=== PATIENT | male | born 1950 | race Caucasian/White ===

== ENCOUNTER 2017-12-21 15:58 | Emergency (ER) | payer MEDICARE ==
[~2017-12-21] VITALS: Ht 165.1 cm; Wt 75.0 kg
[~2017-12-21 15:58] MED LIST: MOBI15TA PO; RANI150UDC PO
[2017-12-21 16:07] VITALS: BP 115/58; PULSE 110; RESP 18; TEMP 99.1; O2SAT 97
[2017-12-21] MEDS ORDERED: BENZ100 PO (16:50)
--- NOTE | 2017-12-21 16:50 | PD ---
HPI Chief Complaint: Cold / Flu Symptoms Time Seen by Provider: 16:37 Travel History International Travel<30 days: No Contact w/Intl Traveler<30days: No Traveled to known affect area: No History of Present Illness HPI 67-year-old male presents to the emergency department with complaint of chest congestion, nasal congestion, cough, body aches, headache, subjective fever, diarrhea since yesterday. Denies chest pain, shortness of breath, abdominal pain, vomiting. Denies wheezing. Has not taken any medications or tried any treatments to alleviate his symptoms. No known aggravating or relieving factors. Symptoms are [id number] in severity. His is sick with similar symptoms. Dr. Rodríguez is primary care provider. No known allergies. Denies significant past medical history. Has no other medical complaints. No other modifying factors or associated signs and symptoms. PFSH Past Medical History Arthritis: Yes Diminished Hearing: No Musculoskeletal: Yes (DJD) Past Surgical History Cholecystectomy: Yes Social History Alcohol Use: No Tobacco Use: Yes (2 PPD) Substance Use: No Allergies-Medications (Allergen,Severity, Reaction): Coded Allergies: No Known Allergies (Verified Adverse Reaction, Unknown, 12/21/17) Reported Meds & Prescriptions Reported Meds & Active Scripts Active Ibuprofen 800 Mg Tab 800 Mg PO Q8H PRN Tessalon Perles (Benzonatate) 100 Mg Cap 100 Mg PO TID PRN Mobic (Meloxicam) 15 Mg Tab 15 Mg PO DAILY Reported Zantac (Ranitidine HCl) 150 Mg/10 Ml Syrp 0 Mg PO UNKNOWN DOSE Review of Systems Except as stated in HPI: all other systems reviewed are Neg Physical Exam Narrative GENERAL: Well-nourished, well-developed male patient, in no acute distress; low-grade fever 99.2, nontoxic-appearing SKIN: Warm and dry. No rash. HEAD: Atraumatic. Normocephalic. EYES: Pupils equal and round. No scleral icterus. No injection or drainage. ENT: Mucosa pink and moist. No erythema or exudates. No uvular edema. No uvular , palatal, or tonsillar deviation. Airway patent. EARS: Bilateral pinnae and external canals appear within normal limits. Bilateral tympanic membranes without erythema, dullness or perforation. NECK: Trachea midline. No lymphadenopathy. CARDIOVASCULAR: Regular rate and rhythm. No murmur appreciated. RESPIRATORY: No accessory muscle use. Clear to auscultation. Breath sounds equal bilaterally. No retractions or tachypnea. GASTROINTESTINAL: Abdomen soft, non-tender, nondistended. Hepatic and splenic margins not palpable. Bowel sounds are active 4 quadrants. MUSCULOSKELETAL: No obvious deformities. No clubbing. No cyanosis. No edema. NEUROLOGICAL: Awake and alert. Oriented 3. No obvious cranial nerve deficits. Motor grossly within normal limits. Normal speech. Moves all extremities. 5/5 strength to all extremities. PSYCHIATRIC: Appropriate mood and affect; insight and judgment normal. Data Data Last Documented VS Vital Signs Date Time Temp Pulse Resp B/P (MAP) Pulse Ox O2 Delivery O2 Flow Rate FiO2 12/21/17 16:07 99.1 110 18 115/58 (77) 97 Room Air Orders Orders Influenzae A/B Antigen (12/21/17 16:46) Ibuprofen (Motrin) (12/21/17 17:00) Ed Discharge Order (12/21/17 17:24) MDM Medical Decision Making Medical Screen Exam Complete: Yes Emergency Medical Condition: Yes Medical Record Reviewed: Yes Differential Diagnosis Influenza, viral illness, upper respiratory infection, bronchitis Narrative Course 67-year-old male with cold/flu symptoms. Low-grade fever of 99.4 in the ER. Nontoxic-appearing. Physical exam is unremarkable. Lungs are clear and equal throughout. Heart rate recheck on physical exam is approximately 90 bpm. He denies chest pain or shortness of breath, wheezing. Influenza, ibuprofen ordered. 1724: lnfluenza negative. Discussed viral illness and symptomatic management. Tessalon Perles and ibuprofen prescribed for home. Instructed patient to follow up with primary care provider. Patient verbalizes understanding and agreement with treatment plan. Patient is medically cleared and stable for discharge. Discussed reasons to return to the emergency department. Patient agrees with treatment plan. The patients vital signs are stable and the patient is stable for outpatient follow-up and treatment. Patient discharged home, stable and in no acute distress. Diagnosis Primary Impression: Viral illness Referrals: Primary Care Physician Patient Instructions: Cold Symptoms (ED), General Instructions, Influenza (ED) , Safe Use of Cough and Cold Medicines (ED), Viral Syndrome (ED) Additional Instructions: Ibuprofen or Tylenol as directed and as needed to reduce fever; may alternate ibuprofen and Tylenol as needed every 3 hours to minimize fever [id number] cold/flu medications as directed and as needed for symptom management Get plenty of sleep/rest Drink plenty of fluids to prevent dehydration; such as Gatorade, Powerade, Pedialyte [place] diet to encourage nutrition such as crackers, fruit, applesauce, toast, soup etc. Use an air humidifier/turn off ceiling fans Follow-up with your primary care provider within 1 day Return immediately to the emergency department with worsening of symptoms Med/Other Pt SpecificInfo: Prescription(s) given Scripts Ibuprofen (Ibuprofen) 800 Mg Tab 800 MG PO Q8H Y for PAIN SCALE 1 TO 10, #20 TAB 0 Refills Prov: Jessi Valenzuela 12/21/17 Benzonatate (Tessalon Perles) 100 Mg Cap 100 MG PO TID Y for COUGH, #10 CAP 0 Refills Prov: Jessi Valenzuela 12/21/17 Disposition: 01 DISCHARGE HOME Condition: Stable Jessi Valenzuela Dec 21, 2017 16:50
[2017-12-21] MEDS ORDERED: IBUPROFEN 800 MG TAB PO ONE (17:00)
[2017-12-21] MEDS ORDERED: IBUP1TAB7 PO (17:24)
== END 2017-12-21 17:45 | disposition home or self-care (01) ==
LOC: PHEFT 15:58
DX: B34.9 Viral infection, unspecified (principal); F17.200 Nicotine dependence, unspecified, uncomplicated
CPT/HCPCS: 87804; 99283

== ENCOUNTER 2018-01-07 18:35 | Inpatient (IN) | payer MEDICARE ==
[~2018-01-07] VITALS: Ht 165.1 cm; Wt 72.7 kg
[~2018-01-07 18:35] MED LIST changes: +BENZ100 PO; +IBUP1TAB7 PO
[2018-01-07 18:54] VITALS: BP 117/65; PULSE 86; RESP 18; TEMP 98.7; O2SAT 95
--- NOTE | 2018-01-07 20:08 | RADRPT ---
EXAM DATE/TIME: 01/07/2018 19:16 [place] COMPARISON: No previous studies available for comparison. INDICATIONS : Cough. MEDICAL HISTORY : None. SURGICAL HISTORY : None. ENCOUNTER: Initial ACUITY: 3 weeks PAIN SCORE: 0/10 LOCATION: Bilateral chest FINDINGS: PA and lateral views of the chest demonstrate the lungs to be symmetrically aerated without evidence of mass, infiltrate or effusion. The cardiomediastinal contours are unremarkable. Osseous structure s are intact. Orthopedic anchors in the left proximal humerus.. CONCLUSION: No acute cardiopulmonary disease. Diogenes De La Fuente MD on January 07, 2018 at 20:06 Board Certified Radiologist. This report was verified electronically.
[2018-01-07 21:44] LABS: AUTOMATED NEUTROPHIL # 3.6 TH/MM3 (1.8-7.7); BASOPHIL # 0.1 TH/MM3 (0-0.2); BASOPHIL % 1.2 % (0.0-2.0); EOSINOPHIL % 0.2 % (0.0-4.0); HEMATOCRIT 22.9 % (39.0-51.0); HEMOGLOBIN 7.7 GM/DL (13.0-17.0); LYMPH % 34.4 % (9.0-44.0); LYMPHOCYTE # 2.5 TH/MM3 (1.0-4.8); MEAN CELL VOLUME 93.7 FL (80.0-100.0); MEAN CORPUSCULAR HEMOGLOBIN 31.6 PG (27.0-34.0); MEAN CORPUSCULAR HGB CONC 33.7 % (32.0-36.0); MEAN PLATELET VOLUME 7.8 FL (7.0-11.0); MONO % 14.9 % (0.0-8.0); MONOCYTE # 1.1 TH/MM3 (0-0.9); NEUT % 49.3 % (16.0-70.0); PLATELET COUNT 431 TH/MM3 (150-450); RED BLOOD COUNT 2.45 MIL/MM3 (4.50-5.90); RED CELL DISTRIBUTION WIDTH 15.4 % (11.6-17.2); WHITE BLOOD COUNT 7.4 TH/MM3 (4.0-11.0)
[2018-01-07] MEDS ORDERED: ACYC200C66 PO (22:06)
[2018-01-07] MEDS ORDERED: ATOR40TA16 PO (22:06)
[2018-01-07] MEDS ORDERED: PANT40TA3 PO (22:06)
[2018-01-07] MEDS ORDERED: NAPR500T2 PO (22:06)
[2018-01-07] MEDS ORDERED: ROSU1TAB10 PO (22:06)
[2018-01-07] MEDS ORDERED: VENTAER INH (22:06)
[2018-01-07 22:07] VITALS: BP 114/56; PULSE 80; RESP 18; O2SAT 98
[2018-01-07 22:10] LABS: BICARBONATE 24.7 MEQ/L (21.0-32.0); CALCIUM 8.5 MG/DL (8.5-10.1); CREATININE 0.79 MG/DL (0.60-1.30)
[2018-01-07] MEDS ORDERED: FAMOTIDINE 20 MG/2 ML VIAL IV PUSH ONE (22:45)
[2018-01-07] MEDS ORDERED: SODIUM CHLORIDE 0.9% FLUSH 10 ML FLUSH IVF PRN (22:45)
[2018-01-07] MEDS ORDERED: SODIUM CHLOR 0.9% 1000 ML INJ 1,000 ML IV ONE (22:45)
[2018-01-07] MEDS ORDERED: PANTOPRAZOLE SODIUM 40 MG VIAL IVP ONE (22:45)
[2018-01-07 22:46] VITALS: RESP 18; O2SAT 99
--- NOTE | 2018-01-07 22:46 | PD ---
HPI Chief Complaint: Abnormal Results Time Seen by Provider: 22:23 Travel History International Travel<30 days: No Contact w/Intl Traveler<30days: No Traveled to known affect area: No History of Present Illness HPI 67-year-old male with PMH of GERD presents to the ED for evaluation of abnormal result. Patient states that he was called by his primary care today and told to present to the ED for low hemoglobin. On presentation he endorses weakness, shortness of breath, recent GI bleeding. He endorses feeling "a little bubble headed." He endorses 5 day history of dark tarry stools. He states this has been resolved for the last 3 days. He was recently admitted to [facility] , had a chest pain workup and a upper endoscopy there. He states that he had plans to see the hydraulic jack adjuster on an outpatient basis for colonoscopy. He states that he was discharged on steroids and attributed his weakness and feeling "a little bubble headed" to this. He's never had a colonoscopy. He endorses 1 pack a smoking history for many years. He denies alcohol use. He states that his PCP told him to come here for "a transfusion" and reports to the PCP in the morning. PFSH Past Medical History Arthritis: Yes Diabetes: No Patient Takes Glucophage: No Diminished Hearing: No Musculoskeletal: Yes (DJD) Immunizations Current: Yes Tetanus Vaccination: > 5 Years Influenza Vaccination: No Past Surgical History Cholecystectomy: Yes Social History Alcohol Use: No Tobacco Use: Yes (QUIT 3 WEEKS AGO) Substance Use: Yes (CAN[place]BIS) Allergies-Medications (Allergen,Severity, Reaction): Coded Allergies: No Known Allergies (Verified Adverse Reaction, Unknown, 01/07/18) Reported Meds & Prescriptions Reported Meds & Active Scripts Active Reported Ventolin Hfa 18 GM Inh (Albuterol Sulfate) 90 Mcg/Act Aer 2 Puff INH DAILY PRN Acyclovir 200 Mg Cap 200 Mg PO BID Pantoprazole (Pantoprazole Sodium) 40 Mg Tab 40 Mg PO DAILY Atorvastatin (Atorvastatin Calcium) 40 Mg Tab 40 Mg PO HS Review of Systems Except as stated in HPI: all other systems reviewed are Neg Physical Exam Narrative GENERAL: Well-nourished, well-developed white male in no acute distress. SKIN: Focused skin assessment pale, warm/dry. HEAD: Normocephalic. EYES: No scleral icterus. No injection or drainage. PERRLA. EOMI. NECK: Supple, trachea midline. No JVD or lymphadenopathy. CARDIOVASCULAR: Regular rate and rhythm without murmurs, gallops, or rubs. RESPIRATORY: Breath sounds clear and equal bilaterally. No accessory muscle use. GASTROINTESTINAL: Abdomen soft, non-tender, nondistended. Active bowel sounds. RECTAL EXAM: No masses or tenderness, stool is brown. Guaiac positive MUSCULOSKELETAL: No cyanosis, or edema. NEUROLOGICAL: Awake and alert. Cranial nerves II through XII intact. Motor and sensory grossly within normal limits. Five out of 5 muscle strength in all muscle groups. Normal speech. BACK: Nontender without obvious deformity. No CVA tenderness. Data Data Last Documented VS Vital Signs Date Time Temp Pulse Resp B/P (MAP) Pulse Ox O2 Delivery O2 Flow Rate FiO2 01/07/18 22:46 18 99 Room Air 01/07/18 22:07 80 01/07/18 18:54 98.7 Orders Orders Complete Blood Count With Diff (01/07/18 18:57) Basic Metabolic Panel (Bmp) (01/07/18 18:57) Type And Screen (01/07/18 18:57) Chest, Pa & Lat (01/07/18 ) Red Blood Cells (Rbc) (01/07/18 22:35) Blood Product Administration (01/07/18 22:35) Ecg Monitoring (01/07/18 22:35) Iv Access Insert/Monitor (01/07/18 22:35) Oximetry (01/07/18 22:35) Pantoprazole Inj (Protonix Inj) (01/07/18 22:45) Sodium Chloride 0.9% Flush (Ns Flush) (01/07/18 22:45) Famotidine Inj (Pepcid Inj) (01/07/18 22:45) Sodium Chlor 0.9% 1000 Ml Inj (Ns 1000 M (01/07/18 22:45) Lorazepam Inj (Ativan Inj) (01/07/18 23:15) Consult Gastroenterology (01/07/18 ) Admit Order (Ed Use Only) (01/07/18 23:24) Labs Laboratory Tests Test 01/07/18 21:15 White Blood Count 7.4 TH/MM3 Red Blood Count 2.45 MIL/MM3 Hemoglobin 7.7 GM/DL Hematocrit 22.9 % Mean Corpuscular Volume 93.7 FL Mean Corpuscular Hemoglobin 31.6 PG Mean Corpuscular Hemoglobin Concent 33.7 % Red Cell Distribution Width 15.4 % Platelet Count 431 TH/MM3 Mean Platelet Volume 7.8 FL Neutrophils (%) (Auto) 49.3 % Lymphocytes (%) (Auto) 34.4 % Monocytes (%) (Auto) 14.9 % Eosinophils (%) (Auto) 0.2 % Basophils (%) (Auto) 1.2 % Neutrophils # (Auto) 3.6 TH/MM3 Lymphocytes # (Auto) 2.5 TH/MM3 Monocytes # (Auto) 1.1 TH/MM3 Eosinophils # (Auto) 0.0 TH/MM3 Basophils # (Auto) 0.1 TH/MM3 CBC Comment DIFF FINAL Differential Comment Blood Urea Nitrogen 12 MG/DL Creatinine 0.79 MG/DL Random Glucose 88 MG/DL Calcium Level 8.5 MG/DL Sodium Level 143 MEQ/L Potassium Level 4.3 MEQ/L Chloride Level 109 MEQ/L Carbon Dioxide Level 24.7 MEQ/L Anion Gap 9 MEQ/L Estimat Glomerular Filtration Rate 98 ML/MIN MDM Medical Decision Making Medical Screen Exam Complete: Yes Emergency Medical Condition: Yes Differential Diagnosis GI bleed versus anemia versus metabolic derangement versus other Narrative Course 67-year-old male with PMH of GERD presents to the ED for evaluation of abnormal result. Patient states that he was called by his primary care today and told to present to the ED for low hemoglobin. On presentation he endorses weakness, shortness of breath, recent GI bleeding. He endorses 5 day history of dark tarry stools. He states this has been resolved for the last 3 days. He was recently admitted to [facility], had a chest pain workup and a upper endoscopy there. He states that he had plans to see the hydraulic jack adjuster on an outpatient basis for colonoscopy. He states that he was discharged on steroids and attributed his weakness to this. He's never had a colonoscopy. He endorses 1 pack a smoking history for many years. He denies alcohol use. He states that his PCP told him to come here for "a transfusion" and reports to the PCP in the morning. Patient afebrile, BP 117/65 on presentation. On exam this is a pale, anxious, nontoxic-appearing white male in no acute distress. Abdominal exam is completely benign. Rectal exam guaiac positive. Patient is agreeable to blood product administration should this be required today. IV was established. Patient was administered Protonix, Pepcid and 1 L normal saline. He was administered 1 g of Ativan IV. Records were requested from the outside hospital. CBC & BMP Diagram 01/07/18 21:15 Calcium Level 8.5 The record arrives and it appears that the patient's hemoglobin was 15 on . 2 units of PRBCs will be transfused pending type and screen. I discussed the results of the workup with the patient as well as the need for admission. He is agreeable to the plan. GI consult was placed. I discussed the case with Dr. Tyler who agrees to accept the patient to the medicine service. Please see GI medicine notes for disposition. HemaPrompt Point of Care Internal Pos. & Neg. Controls: Passed Fecal Specimen Occult Blood: Positive Dhara Nobles Jan 07, 2018 22:46
[2018-01-07] MEDS ORDERED: LORazepam 2 MG/ML VIAL IV PUSH ONE (23:15)
[2018-01-07 23:53] VITALS: BP 118/71; PULSE 80; RESP 18; TEMP 97.7; O2SAT 99
[2018-01-08] VITALS (13 sets, daily range): BP systolic 104–136; BP diastolic 57–86; PULSE 61–98; RESP 16–18; TEMP 97–98.6; O2SAT 96–99
--- NOTE | 2018-01-08 06:06 | HHI.HP ---
HPI Service [facility] Primary Care Physician Ramesh Rodríguez M.D. Admission Diagnosis anemia, GI bleed Chief Complaint: Dyspnea, directed to the ER by primary care physician for low hemoglobin Travel History International Travel<30 Days: No Contact w/Intl Traveler <30 Da: No Traveled to Known Affected Are: No History of Present Illness 67-year-old male with PMH of GERD and long-term tobacco use presents to the ED for evaluation of abnormal result. Patient states that he was called by his primary care on the day of admission and told to present to the ED for low hemoglobin. On presentation he endorses weakness, shortness of breath, recent GI bleeding with history of dark tarry stools that actually started when he was in a local hospital. He reports that the stools have actually begun to be more formed and less dark over the last 3 days. He noted some occasional bright red blood in stool but that has resolved as well. He was recently admitted to [facility] for dyspnea on exertion and reportedly had a chest pain workup and a upper GI series there. He did not have a stress test during the recent admission as he had negative study 2-3 years ago. 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 He was planning on having these procedures done after bi week events have completed. He states that he had plans to see the equipment mechanic specialist on an outpatient basis for these studies and actually had an upcoming appointment in the next 1-2 days. He states that he was discharged on steroids and attributed his weakness and feeling "a little bubble headed" to this as his "bubble headedness" resolved after he stopped the prednisone. He's never had a colonoscopy. He endorses 2-3 packs a smoking history for many years , but stopped 3 weeks ago. He denies alcohol use over the last 1-1/2 years. He states that his PCP told him to come here for "a transfusion" and report to the PCP after receiving the transfusion. Review of Systems Constitutional: COMPLAINS OF: Diaphoretic episodes, Fatigue, Dizziness, DENIES : Fever, Weight gain, Weight loss, Chills, Change in appetite, Night Sweats Endocrine: DENIES: Heat/cold intolerance, Polydipsia, Polyuria, Polyphagia Eyes: DENIES: Blurred vision, Diplopia, Eye inflammation, Eye pain, Vision loss , Photosensitivity, Double Vision Ears, nose, mouth, throat: DENIES: Tinnitus, Hearing loss, Vertigo, Nasal discharge, Oral lesions, Throat pain, Hoarseness, Ear Pain, Running Nose, Epistaxis, Sinus Pain, Toothache, Odynophagia Respiratory: COMPLAINS OF: Cough, Wheezing, Sputum production, Shortness of breath, DENIES: Apneas, Snoring, Hemoptysis Cardiovascular: COMPLAINS OF: Dyspnea on Exertion, DENIES: Chest pain, Palpitations, Syncope, PND, Lower Extremity Edema, Orthopnea, Claudication Gastrointestinal: COMPLAINS OF: Black stools, BRB per rectum, Diarrhea, GERD, Nausea, Reflux, DENIES: Abdominal pain, Bloody stools, Constipation, Vomiting, Difficulty Swallowing, Anorexia, See HPI Musculoskeletal: COMPLAINS OF: Joint pain Integumentary: DENIES: Abnormal pigmentation, Nail changes, Pruritus, Rash Hematologic/lymphatic: DENIES: Bruising, Lymphadenopathy Immunologic/allergic: DENIES: Eczema, Urticaria Neurologic: DENIES: Abnormal gait, Headache, Localized weakness, Paresthesias, Seizures, Speech Problems, Tremor, Poor Balance Psychiatric: DENIES: Anxiety, Confusion, Mood changes, Depression, Hallucinations, Agitation, Suicidal Ideation, Homicidal Ideation, Delusions, History of Bipolar, History of Schizophrenia Past Family Social History Past Medical History Hyperlipidemia GERD Questionable COPD Osteoarthritis Past Surgical History Rotator cuff surgery bilaterally Cholecystectomy Reported Medications Naproxen 500 mg 1 twice daily Protonix 40 mg daily Lipitor 40 mg daily Acyclovir 200 mg twice daily Ventolin inhaler 2 puffs every 4 hours as needed Ceftin 500 mg twice a day Fish oil 1200 mg a day Garlic [place] raisins soaked in gin, he eats 8-9 of these raisins each morning Allergies: Coded Allergies: No Known Allergies (Verified Adverse Reaction, Unknown, 01/07/18) Family History nc Social History No tobacco in 3 weeks but prior to that smoked 2-3 packs per day for over 40 years No alcohol and 1-1/2 years except for the gin soaked raisins; reports that he was never a heavy drinker 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, 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 Born in [place], subsequently moved to [place] and has lived here for 25 years for 25 years Reports that his daughter is a local inventory coordinator Physical Exam Vital Signs Vital Signs Date Time Temp Pulse Resp B/P (MAP) Pulse Ox O2 Delivery O2 Flow Rate FiO2 01/08/18 04:30 97.6 71 16 114/71 98 01/08/18 04:00 97.9 70 18 112/74 98 01/08/18 03:26 97.9 70 18 114/77 98 01/08/18 03:06 97.9 61 18 115/77 99 01/08/18 02:52 97.9 98 18 111/73 98 01/08/18 02:26 98.5 77 16 106/57 97 01/08/18 01:10 73 18 104/66 (79) 97 Room Air 01/08/18 00:25 97.9 72 17 109/69 96 01/08/18 00:10 97.9 80 18 119/63 96 01/07/18 23:53 97.7 80 18 118/71 99 01/07/18 22:46 18 99 Room Air 01/07/18 22:07 80 18 114/56 (75) 98 Room Air 01/07/18 18:54 98.7 86 18 117/65 (82) 95 Physical Exam GENERAL: This is a well-nourished, well-developed patient, in no apparent distress. Sleeping soundly but arouses to voice. A/O. SKIN: No rashes, ecchymoses or lesions. Cool and dry. Multiple tattoos on upper extremities and torso. HEAD: Atraumatic. Normocephalic. No temporal or scalp tenderness. EYES: Pupils equal round and reactive. Extraocular motions intact. No scleral icterus. No injection or drainage. ENT: Nose without bleeding, purulent drainage or septal hematoma. No petechiae. Airway patent. NECK: Trachea midline. No JVD or lymphadenopathy. Supple, nontender, no meningeal signs. CARDIOVASCULAR: Regular rate and rhythm without murmurs, gallops, or rubs. RESPIRATORY: Clear to auscultation with the exception of occasional bronchovesicular sounds which improve with cough. Breath sounds equal bilaterally. No wheeze. GASTROINTESTINAL: Abdomen soft, non-tender, nondistended. No hepato-splenomegaly , or palpable masses. No guarding. Bowel sounds normal. MUSCULOSKELETAL: Extremities without clubbing, cyanosis, or edema. No joint tenderness, effusion, or edema noted. No calf tenderness. NEUROLOGICAL: Awake and alert. Cranial nerves II through XII intact. Motor and sensory grossly within normal limits. Five out of 5 muscle strength in all muscle groups. Normal speech. Laboratory Laboratory Tests Test 01/07/18 21:15 White Blood Count 7.4 Red Blood Count 2.45 Hemoglobin 7.7 Hematocrit 22.9 Mean Corpuscular Volume 93.7 Mean Corpuscular Hemoglobin 31.6 Mean Corpuscular Hemoglobin Concent 33.7 Red Cell Distribution Width 15.4 Platelet Count 431 Mean Platelet Volume 7.8 Neutrophils (%) (Auto) 49.3 Lymphocytes (%) (Auto) 34.4 Monocytes (%) (Auto) 14.9 Eosinophils (%) (Auto) 0.2 Basophils (%) (Auto) 1.2 Neutrophils # (Auto) 3.6 Lymphocytes # (Auto) 2.5 Monocytes # (Auto) 1.1 Eosinophils # (Auto) 0.0 Basophils # (Auto) 0.1 CBC Comment DIFF FINAL Differential Comment Blood Urea Nitrogen 12 Creatinine 0.79 Random Glucose 88 Calcium Level 8.5 Sodium Level 143 Potassium Level 4.3 Chloride Level 109 Carbon Dioxide Level 24.7 Anion Gap 9 Estimat Glomerular Filtration Rate 98 Result Diagram: 01/07/18211401/07/182114 Imaging Last 72 hours Impressions Chest X-Ray 01/07/18 0000 Signed Impressions: Service Date/Time: Sunday, January 07, 2018 19:16 - CONCLUSION: No acute cardiopulmonary disease. MD Francine Culp VTE Risk Assessment Francine VTE Risk Assessment: Mod/High Risk (score >= 2) Caprini Risk Assessment Model Point Value = 1 Point Value = 2 Point Value = 3 Point Value = 5 Age 41-60 Minor surgery BMI > 25 kg/m2 Swollen legs Varicose veins or History of unexplained or recurrent spontaneous Oral contraceptives or hormone replacement Sepsis (< 1 month) Serious lung disease, including pneumonia (< 1 month) Abnormal pulmonary function Acute myocardial infarction Congestive heart failure (< 1 month) History of inflammatory bowel disease Medical patient at bed rest Age 61-74 Arthroscopic surgery Major open surgery (> 45 min) Laparoscopic surgery (> 45 min) Malignancy Confined to bed (> 72 hours) Immobilizing plaster cast Central venous access Age >= 75 History of VTE Family history of VTE Factor V Leiden Prothrombin [id number] Lupus anticoagulant Anticardiolipin antibodies Elevated serum homocysteine Heparin-induced thrombocytopenia Other congenital or acquired thrombophilia Stroke (< 1 month) Elective arthroplasty Hip, pelvis, or leg fracture Acute spinal cord injury (< 1 month) Prophylaxis Regimen Total Risk Factor Score Risk Level Prophylaxis Regimen 0-1 Low Early ambulation 2 Moderate Order ONE of the following: *Sequential Compression Device (SCD) *Heparin 5000 units SQ BID 3-4 Higher Order ONE of the following medications: *Heparin 5000 units SQ TID *Enoxaparin/Lovenox 40 mg SQ daily (WT < 150 kg, CrCl > 30 mL/min) *Enoxaparin/Lovenox 30 mg SQ daily (WT < 150 kg, CrCl > 10-29 mL/min) *Enoxaparin/Lovenox 30 mg SQ BID (WT < 150 kg, CrCl > 30 mL/min) AND/OR *Sequential Compression Device (SCD) 5 or more Highest Order ONE of the following medications: *Heparin 5000 units SQ TID (Preferred with Epidurals) *Enoxaparin/Lovenox 40 mg SQ daily (WT < 150 kg, CrCl > 30 mL/min) *Enoxaparin/Lovenox 30 mg SQ daily (WT < 150 kg, CrCl > 10-29 mL/min) *Enoxaparin/Lovenox 30 mg SQ BID (WT < 150 kg, CrCl > 30 mL/min) AND *Sequential Compression Device (SCD) Assessment and Plan Problem List: (1) Anemia due to blood loss ICD Codes: D50.0 - Iron deficiency anemia secondary to blood loss (chronic) Status: Acute Plan: Patient was somewhat symptomatic with dyspnea on exertion and increased fatigue. He is currently receiving the second unit of 2 units PRBCs. Vital signs have been quite stable. GI has been consulted. Patient was somewhat reluctant initially to have GI workup given his upcoming schedule but is agreeable to consultation and procedure if this can be arranged within the next 24 hours. (2) Gastrointestinal bleed ICD Codes: K92.2 - Gastrointestinal hemorrhage, unspecified Status: Acute Plan: As above. Continue Protonix. Will stop nonsteroidals as well as garlic and fish oil for now. (3) GERD Status: Chronic Plan: As above. Code Status full Discussed Condition With Patient and ER provider Bari Tyler MD PhD Jan 08, 2018 06:06
[2018-01-08] MEDS ORDERED: RESP: ALBUTEROL 2.5 MG/IPRATROPIUM 0.5 MG NEB (PRN) NEB (06:15)
[2018-01-08] MEDS ORDERED: NON-FORMULARY DRUG (Rosuvastatin 40 MG) PO SCH (09:00)
[2018-01-08] MEDS ORDERED: PANTOPRAZOLE SOD 40 MG DELAYED RELEASE TAB PO SCH (09:00)
--- NOTE | 2018-01-08 09:36 | PD.CONS ---
HPI History of Present Illness This is a 67 year old male who presented to ER for low hgb, sent from PCP. He admits black tarry stool that started 2 weeks ago, along with diarrhea and some red blood. Denies abd pain, n/v. He lost 10 lbs when he was having diarrhea a week ago but gained it back. He was admitted to [facility] for chest discomfort and given breathing tx but the GIB was not really addressed. He has been tired and SOB on exertion this last week and then was notified that his hgb was 7 and to go to ER. Never had colonoscopy. NO prior hx GIB. He takes naproxen daily. Quit drinking 1 year ago but denies any heavy drinking. (Isabelle Bailey) PFSH Past Medical History arthritis Past Surgical History surekha rotator cuff repair cholecystectomy (Isabelle Bailey) Coded Allergies: No Known Allergies (Verified Adverse Reaction, Unknown, 01/07/18) Family History heart disease DM Social History no etoh aside from gin soaked raisins for his arthritis quit smoking 8 weeks ago, prior 2.5 ppd regular marijuana use (Isabelle Bailey) Review of Systems Constitutional: COMPLAINS OF: Fatigue, DENIES: Fever Eyes: DENIES: Blurred vision Ears, nose, mouth, throat: DENIES: Hearing loss Respiratory: COMPLAINS OF: Shortness of breath Cardiovascular: DENIES: Chest pain Gastrointestinal: COMPLAINS OF: Black stools, Bloody stools, DENIES: Abdominal pain, Nausea, Vomiting, Hematemesis Genitourinary: DENIES: Hematuria Musculoskeletal: DENIES: Muscle aches Integumentary: DENIES: Jaundice Hematologic/lymphatic: DENIES: Bruising Immunologic/allergic: DENIES: Eczema Neurologic: DENIES: Abnormal gait Psychiatric: DENIES: Confusion (Isabelle Bailey) GI Exam Vitals I&O Vital Signs Date Time Temp Pulse Resp B/P (MAP) Pulse Ox O2 Delivery O2 Flow Rate FiO2 01/08/18 08:22 81 17 122/72 (89) 97 Room Air 01/08/18 05:59 74 16 118/72 (87) 97 Room Air 01/08/18 04:30 97.6 71 16 114/71 98 01/08/18 04:00 97.9 70 18 112/74 98 01/08/18 03:26 97.9 70 18 114/77 98 01/08/18 03:06 97.9 61 18 115/77 99 01/08/18 02:52 97.9 98 18 111/73 98 01/08/18 02:26 98.5 77 16 106/57 97 01/08/18 01:10 73 18 104/66 (79) 97 Room Air 01/08/18 00:25 97.9 72 17 109/69 96 01/08/18 00:10 97.9 80 18 119/63 96 01/07/18 23:53 97.7 80 18 118/71 99 01/07/18 22:46 18 99 Room Air 01/07/18 22:07 80 18 114/56 (75) 98 Room Air 01/07/18 18:54 98.7 86 18 117/65 (82) 95 I/O 01/07/18 01/07/18 01/07/18 01/08/18 01/08/18 01/08/18 07:00 15:00 23:00 07:00 15:00 23:00 Intake Total 1420 ml Balance 1420 ml Intake IV Total 1000 ml Packed Cells 400 ml Blood Product IV Normal Saline Flush 20 ml Imaging Last Impressions Chest X-Ray 01/07/18 0000 Signed Impressions: Service Date/Time: Sunday, January 07, 2018 19:16 - CONCLUSION: No acute cardiopulmonary disease. Diogenes De La Fuente MD Laboratory Test 01/07/18 21:15 White Blood Count 7.4 TH/MM3 Red Blood Count 2.45 MIL/MM3 Hemoglobin 7.7 GM/DL Hematocrit 22.9 % Mean Corpuscular Volume 93.7 FL Mean Corpuscular Hemoglobin 31.6 PG Mean Corpuscular Hemoglobin Concent 33.7 % Red Cell Distribution Width 15.4 % Platelet Count 431 TH/MM3 Mean Platelet Volume 7.8 FL Neutrophils (%) (Auto) 49.3 % Lymphocytes (%) (Auto) 34.4 % Monocytes (%) (Auto) 14.9 % Eosinophils (%) (Auto) 0.2 % Basophils (%) (Auto) 1.2 % Neutrophils # (Auto) 3.6 TH/MM3 Lymphocytes # (Auto) 2.5 TH/MM3 Monocytes # (Auto) 1.1 TH/MM3 Eosinophils # (Auto) 0.0 TH/MM3 Basophils # (Auto) 0.1 TH/MM3 CBC Comment DIFF FINAL Differential Comment Blood Urea Nitrogen 12 MG/DL Creatinine 0.79 MG/DL Random Glucose 88 MG/DL Calcium Level 8.5 MG/DL Sodium Level 143 MEQ/L Potassium Level 4.3 MEQ/L Chloride Level 109 MEQ/L Carbon Dioxide Level 24.7 MEQ/L Anion Gap 9 MEQ/L Estimat Glomerular Filtration Rate 98 ML/MIN Physical Examination HEENT: PERRL; normocephalic; atraumatic; no jaundice. CHEST: wheeze left lower lung field CARDIAC: RRR ABDOMEN: Soft, protuberant, nontender; no hepatosplenomegaly; bowel sounds are present in all four quadrants. EXTREMITIES: No clubbing, cyanosis, or edema. SKIN: Normal; no rash; no jaundice. FREE LANCE ARTIST: No focal deficits; alert and oriented times three. (Isabelle Bailey) Assessment and Plan Plan ASSESSMENT - black tarry stool, blood in stool, anemia - GIB. hgb 7.7 on admission, normocytic. onset black tarry stool and some red blood 1-2 weeks ago. no prior hx GIB. takes daily naproxen. never had EGD or colonoscopy. PLAN - EGD and colonoscopy - obtain consent - clear liquid - NPO after - mg citrate x 2 - monitor HH - transfuse as needed - notify GI of active bleeding - protonix further recs to follow pt seen by myself and Dr Knox and this note is on his behalf (Isabelle Bailey) Physician Comments Seen and examined, plan as above, EGD and Colonoscopy in AM. Further recommendations to follow. Thank you for the consult. (Fabienne Knox MD) Isabelle Bailey Jan 08, 2018 09:36 Fabienne Knox MD Jan 08, 2018 11:42
[2018-01-08] MEDS: ACYCLOVIR 200 MG CAP PO SCH ×2 (09:46→21:51)
--- NOTE | 2018-01-08 10:39 | HHI.PR ---
Subjective Remarks Patient Sent to ER by PCP due to anemia, patient reports black tarry stools x 2 weeks. However patient reports normal colored BM today Hemoccult positive in ER Objective Vitals Vital Signs Date Time Temp Pulse Resp B/P (MAP) Pulse Ox O2 Delivery O2 Flow Rate FiO2 01/08/18 08:22 81 17 122/72 (89) 97 Room Air 01/08/18 05:59 74 16 118/72 (87) 97 Room Air 01/08/18 04:30 97.6 71 16 114/71 98 01/08/18 04:00 97.9 70 18 112/74 98 01/08/18 03:26 97.9 70 18 114/77 98 01/08/18 03:06 97.9 61 18 115/77 99 01/08/18 02:52 97.9 98 18 111/73 98 01/08/18 02:26 98.5 77 16 106/57 97 01/08/18 01:10 73 18 104/66 (79) 97 Room Air 01/08/18 00:25 97.9 72 17 109/69 96 01/08/18 00:10 97.9 80 18 119/63 96 01/07/18 23:53 97.7 80 18 118/71 99 01/07/18 22:46 18 99 Room Air 01/07/18 22:07 80 18 114/56 (75) 98 Room Air 01/07/18 18:54 98.7 86 18 117/65 (82) 95 Result Diagram: 01/07/18211401/07/182114 Other Results Laboratory Tests Test 01/07/18 21:15 White Blood Count 7.4 TH/MM3 Red Blood Count 2.45 MIL/MM3 Hemoglobin 7.7 GM/DL Hematocrit 22.9 % Mean Corpuscular Volume 93.7 FL Mean Corpuscular Hemoglobin 31.6 PG Mean Corpuscular Hemoglobin Concent 33.7 % Red Cell Distribution Width 15.4 % Platelet Count 431 TH/MM3 Mean Platelet Volume 7.8 FL Neutrophils (%) (Auto) 49.3 % Lymphocytes (%) (Auto) 34.4 % Monocytes (%) (Auto) 14.9 % Eosinophils (%) (Auto) 0.2 % Basophils (%) (Auto) 1.2 % Neutrophils # (Auto) 3.6 TH/MM3 Lymphocytes # (Auto) 2.5 TH/MM3 Monocytes # (Auto) 1.1 TH/MM3 Eosinophils # (Auto) 0.0 TH/MM3 Basophils # (Auto) 0.1 TH/MM3 CBC Comment DIFF FINAL Differential Comment Blood Urea Nitrogen 12 MG/DL Creatinine 0.79 MG/DL Random Glucose 88 MG/DL Calcium Level 8.5 MG/DL Sodium Level 143 MEQ/L Potassium Level 4.3 MEQ/L Chloride Level 109 MEQ/L Carbon Dioxide Level 24.7 MEQ/L Anion Gap 9 MEQ/L Estimat Glomerular Filtration Rate 98 ML/MIN Imaging Last 72 hours Impressions Chest X-Ray 01/07/18 0000 Signed Impressions: Service Date/Time: Sunday, January 07, 2018 19:16 - CONCLUSION: No acute cardiopulmonary disease. Diogenes De La Fuente MD Objective Remarks GENERAL: This is a well-nourished, well-developed patient, in no apparent distress. CARDIOVASCULAR: Regular rate and rhythm RESPIRATORY: Clear to auscultation. Breath sounds equal bilaterally. GASTROINTESTINAL: Abdomen soft, non-tender, nondistended. Normal active bowel sounds MUSCULOSKELETAL: Extremities without clubbing, cyanosis, or edema. NEURO: Alert & Oriented x4 to person, place, time, situation. 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 Hemoglobin 7.7 on admission, recheck after 2 units PRBCs pending He is currently receiving the second unit of 2 units PRBCs. 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 He wants to get out of the hospital as soon as possible (2) Gastrointestinal bleed ICD Codes: K92.2 - Gastrointestinal hemorrhage, unspecified Status: Acute Plan: As above. Continue Protonix. Patient has been taking Naproxen 500 mg PO BID for the past 2 years Will stop nonsteroidal as well as garlic and fish oil for now. (3) GERD Status: Chronic Plan: As above. Assessment and Plan Patient examined. Assessment and plan formulated with Kay Izaguirre PA-C. I agree with the above. gib. acute blood loss anemia with symptoms s/p 2units blood. egd/colon in AM Kay Izaguirre Jan 08, 2018 10:39 Geo Baires MD Jan 08, 2018 16:57
[2018-01-08 11:30] LABS: AUTOMATED NEUTROPHIL # 5.5 TH/MM3 (1.8-7.7); BASOPHIL # 0.1 TH/MM3 (0-0.2); BASOPHIL % 1.3 % (0.0-2.0); EOSINOPHIL % 0.4 % (0.0-4.0); HEMATOCRIT 31.3 % (39.0-51.0); HEMOGLOBIN 10.8 GM/DL (13.0-17.0); LYMPH % 22.4 % (9.0-44.0); LYMPHOCYTE # 1.9 TH/MM3 (1.0-4.8); MEAN CELL VOLUME 91.4 FL (80.0-100.0); MEAN CORPUSCULAR HEMOGLOBIN 31.6 PG (27.0-34.0); MEAN CORPUSCULAR HGB CONC 34.6 % (32.0-36.0); MEAN PLATELET VOLUME 7.9 FL (7.0-11.0); MONO % 11.2 % (0.0-8.0); MONOCYTE # 0.9 TH/MM3 (0-0.9); NEUT % 64.7 % (16.0-70.0); PLATELET COUNT 412 TH/MM3 (150-450); RED BLOOD COUNT 3.42 MIL/MM3 (4.50-5.90); RED CELL DISTRIBUTION WIDTH 15.7 % (11.6-17.2); WHITE BLOOD COUNT 8.4 TH/MM3 (4.0-11.0)
[2018-01-08] MEDS ORDERED: MAGNESIUM CITRATE SOLN 300 ML BTL PO ONE ×2 (16:00→18:00)
[2018-01-08] MEDS ORDERED: CHLORHEXIDINE GLUCONATE 2 % 1 PACK (2 CLOTHS) TOPICAL PRN (19:45)
[2018-01-08] MEDS ORDERED: POVIDONE IODINE 5% (ANTISEPSIS KIT) 4 APPLICATIONS EACH NARE PRN (19:45)
[2018-01-08] MEDS ORDERED: METOPROLOL TARTRATE 25 MG TAB PO PRN (19:45)
[2018-01-08] MEDS ORDERED: SODIUM CHLORID 0.9% 500 ML IV PRN (19:45)
[2018-01-08] MEDS ORDERED: LACTATED RINGER'S 1000 ML IV PRN (19:45)
[2018-01-08 19:58] LABS: % SATURATION IRON PROFILE 8.1 % (20-50); IRON (FE) 29 MCG/DL (65-175); TOTAL IRON BINDING CAPACITY 360 MCG/DL (250-450)
[2018-01-08 20:01] LABS: FERRITIN 95 NG/ML (26-388)
[2018-01-08] MEDS ORDERED: ATORVASTATIN 40 MG TAB PO SCH (21:00)
[2018-01-08] MEDS: PANTOPRAZOLE SOD 40 MG DELAYED RELEASE TAB PO SCH (21:52)
[2018-01-09 01:48] VITALS: BP 108/61; PULSE 74; RESP 16; TEMP 98; O2SAT 98
[2018-01-09 04:35] VITALS: BP 112/63; PULSE 72; RESP 16; TEMP 98; O2SAT 98
[2018-01-09 07:24] VITALS: BP 130/82; PULSE 65; RESP 18; TEMP 97.7; O2SAT 97
[2018-01-09] MEDS ORDERED: KETAMINE HCL 10 MG/5 ML SYRINGE IV PUSH ONE (09:06)
--- NOTE | 2018-01-09 09:41 | GIPROC ---
[facility] [address] [facility]. [facility], [address] EGD PROCEDURE REPORT EXAM DATE: 01/09/2018 PATIENT NAME: Masood Burrell MR #: [id number] BIRTHDATE: 1950 ATTENDING: Fabienne Knox MD ORDER #: [id number] SPRAY CREW: Yehuda Pearson and Parris Green STATUS: inpatient INDICATIONS: The patient is a 67 yr old male here for an EGD due to anemia PROCEDURE PERFORMED: EGD w/ biopsy MEDICATIONS: None and Per Anesthesia. TOPICAL ANESTHETIC: none CONSENT: The patient understands the risks and benefits of the procedure and understands that these risks include, but are not limited to: sedation, allergic reaction, infection, perforation and/or bleeding. Alternative means of evaluation and treatment include, among others: physical exam, x-rays, and/or surgical intervention. The patient elects to proceed with this endoscopic procedure. medical equipment was checked for proper function. Hand hygiene and appropriate measures for infection prevention was taken. After the risks, benefits and alternatives of the procedure were thoroughly explained, Informed consent was verified, confirmed and timeout was successfully executed by the treatment team. The patient was anesthetized with topical anesthesia and the EC-[id number] (Pedi C) endoscope was introduced through the mouth and advanced to the second portion of the duodenum. Retroflexion was performed and was normal The gastroscope was then slowly withdrawn and removed. ESOPHAGUS: The mucosa of the esophagus appeared normal. STOMACH: There was mild gastritis in the entire examined stomach. Multiple biopsies were performed using cold forceps. Sample sent for histology. DUODENUM: A large non-bleeding non-bleeding, round, deep and clean-based ulcer was found in the duodenal bulb. ADVERSE EVENTS: There were no complications. IMPRESSIONS: 1. The esophagus appeared normal 2. There was mild gastritis in the entire examined stomach; multiple biopsies were performed 3. Large non-bleeding ulcer was found in the duodenal bulb 4. Retroflexion was performed and was normal RECOMMENDATIONS: 1. Await biopsy results. Biopsy results will not be ready for 7-10 days. If you don't hear from us in two weeks, call our office for biopsy results. 2. Continue PPI 3. Avoid NSAIDS PATIENT CONDITION: stable DISPOSITION: Observation REPEAT EXAM: NONE Fabienne Knox MD eSigned: Fabienne Knox MD 01/09/2018 9:40 AM cc: PATIENT NAME: Masood Burrell Scot MR#: [id number]
[2018-01-09] MEDS ORDERED: DO NOT ADM ANY ANTICOAGULANT DRUGS PRN (09:42)
--- NOTE | 2018-01-09 09:44 | GIPROC ---
[facility] [address] [facility]. [facility], [address] COLONOSCOPY PROCEDURE REPORT EXAM DATE: 01/09/2018 PATIENT NAME: Masood Burrell MR #: [id number] BIRTHDATE: 1950 ENDOSCOPIST: Fabienne Knox MD ORDER #: [id number] RETIREMENT CONSULTANT: Yehuda Pearson and Parris Green STATUS: inpatient INDICATIONS: The patient is a 67 yr old male here for a colonoscopy due to anemia, non-specific PROCEDURE PERFORMED: Colonoscopy, diagnostic MEDICATIONS: None and Per Anesthesia. PREP QUALITY: fair PREP TYPE:Magnesium Citrate ESTIMATED BLOOD LOSS: None CONSENT: The patient understands the risks and benefits of the procedure and understands that these risks include, but are not limited to: sedation, allergic reaction, infection, perforation and/or bleeding. Alternative means of evaluation and treatment include, among others: physical exam, x-rays, and/or surgical intervention. The patient elects to proceed with this endoscopic procedure. medical equipment was checked for proper function. Hand hygiene and appropriate measures for infection prevention was taken. After the risks, benefits and alternatives of the procedure were thoroughly explained, Informed consent was verified, confirmed and timeout was successfully executed by the treatment team. A digital exam revealed no abnormalities of the rectum The Pentax EC-[id number] endoscope was introduced through the anus and advanced to the cecum, which was identified by both the appendix and ileocecal valve. The instrument was then slowly withdrawn as the colon was fully examined. COLON FINDINGS: Moderate sized internal hemorrhoids were found. Retroflexed views revealed no abnormalities, Retroflexed views revealed internal hemorrhoids, and Retroflexed views revealed medium internal hemorrhoids The scope was then completely withdrawn from the patient and the procedure terminated. PROCEDURE WITHDRAWAL TIME:8minutes ADVERSE EVENTS: There were no complications. IMPRESSIONS: 1. Moderate sized internal hemorrhoids 2. Otherwise normal colon exam. RECOMMENDATIONS: 1. High fiber diet 2. Continue surveillance RECALL: Return 10 years Colonoscopy Fabienne Knox MD eSigned: Fabienne Knox MD 01/09/2018 9:44 AM cc:
[2018-01-09 10:07] VITALS: BP 106/72; PULSE 71; RESP 20; TEMP 97.9; O2SAT 100
--- NOTE | 2018-01-09 10:42 | HHI.PR ---
Subjective Remarks Pt had EGD/colonoscopy today which revealed mild gastritis in the entire examined stomach and a large non-bleeding ulcer was found in the duodenal bulb. Colonoscopy was normal other than internal hemorrhoids. Pt tolerated breakfast and is anxious to go home. Objective Vitals Vital Signs Date Time Temp Pulse Resp B/P (MAP) Pulse Ox O2 Delivery O2 Flow Rate FiO2 01/09/18 10:07 97.9 71 20 106/72 (83) 100 Room Air 01/09/18 10:00 72 20 110/74 (86) 99 Room Air 01/09/18 09:55 62 17 112/72 (85) 97 Room Air 01/09/18 09:45 67 18 107/69 (82) 97 Nasal Cannula 3 01/09/18 09:44 97.7 64 10 84/50 (61) 98 Nasal Cannula 3 01/09/18 07:24 97.7 65 18 130/82 (98) 97 01/09/18 04:35 98.0 72 16 112/63 (79) 98 01/09/18 01:48 98.0 74 16 108/61 (77) 98 01/08/18 20:00 98.6 76 16 136/64 (88) 98 01/08/18 16:00 97.0 97 16 117/86 (96) 99 01/08/18 15:52 01/09/18 01/09/18 01/10/18 15:00 23:00 07:00 Intake Total 400 ml Output Total 0 ml Balance 400 ml Intake Oral 0 ml IV Total 400 ml Output Estimated Blood Loss 0 ml # Voids 0 Result Diagram: 01/08/18 1014 01/07/188 Other Results Laboratory Tests Test 01/07/18 21:15 01/08/18 10:14 01/08/18 19:06 White Blood Count 7.4 TH/MM3 8.4 TH/MM3 Red Blood Count 2.45 MIL/MM3 3.42 MIL/MM3 Hemoglobin 7.7 GM/DL 10.8 GM/DL Hematocrit 22.9 % 31.3 % Mean Corpuscular Volume 93.7 FL 91.4 FL Mean Corpuscular Hemoglobin 31.6 PG 31.6 PG Mean Corpuscular Hemoglobin Concent 33.7 % 34.6 % Red Cell Distribution Width 15.4 % 15.7 % Platelet Count 431 TH/MM3 412 TH/MM3 Mean Platelet Volume 7.8 FL 7.9 FL Neutrophils (%) (Auto) 49.3 % 64.7 % Lymphocytes (%) (Auto) 34.4 % 22.4 % Monocytes (%) (Auto) 14.9 % 11.2 % Eosinophils (%) (Auto) 0.2 % 0.4 % Basophils (%) (Auto) 1.2 % 1.3 % Neutrophils # (Auto) 3.6 TH/MM3 5.5 TH/MM3 Lymphocytes # (Auto) 2.5 TH/MM3 1.9 TH/MM3 Monocytes # (Auto) 1.1 TH/MM3 0.9 TH/MM3 Eosinophils # (Auto) 0.0 TH/MM3 0.0 TH/MM3 Basophils # (Auto) 0.1 TH/MM3 0.1 TH/MM3 CBC Comment DIFF FINAL DIFF FINAL Differential Comment Blood Urea Nitrogen 12 MG/DL Creatinine 0.79 MG/DL Random Glucose 88 MG/DL Calcium Level 8.5 MG/DL Sodium Level 143 MEQ/L Potassium Level 4.3 MEQ/L Chloride Level 109 MEQ/L Carbon Dioxide Level 24.7 MEQ/L Anion Gap 9 MEQ/L Estimat Glomerular Filtration Rate 98 ML/MIN Iron Level 29 MCG/DL Total Iron Binding Capacity 360 MCG/DL Percent Iron Saturation 8.1 % Ferritin 95 NG/ML Imaging Last 72 hours Impressions Chest X-Ray 01/07/18 0000 Signed Impressions: Service Date/Time: Sunday, January 07, 2018 19:16 - CONCLUSION: No acute cardiopulmonary disease. Diogenes De La Fuente MD Objective Remarks GENERAL: This is a well-nourished, well-developed patient, in no apparent distress. CARDIOVASCULAR: Regular rate and rhythm RESPIRATORY: Clear to auscultation. Breath sounds equal bilaterally. GASTROINTESTINAL: Abdomen soft, non-tender, nondistended. Normal active bowel sounds MUSCULOSKELETAL: Extremities without clubbing, cyanosis, or edema. NEURO: Alert & Oriented x4 to person, place, time, situation. 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 - Hemoglobin 7.7 on admission, recheck after 2 units PRBCs improved to Hgb 10.8 - GI consulted at admission - Pt underwent EGD and colonoscopy on 01/09/18 --> mild gastritis in the entire examined stomach, large non-bleeding ulcer was found in the duodenal bulb, and internal hemorrhoids - Pt will need to continue PPI BID - He will need to followup with GI in 2 weeks for biopsy results - Avoid NSAIDS - Any back stools, bloody stools, increased weakness/fatigue or SOB and he is to return to the ED for further evaluation. - Pt will need to followup with his PCP in 1 week. (2) Gastrointestinal bleed ICD Codes: K92.2 - Gastrointestinal hemorrhage, unspecified Status: Acute Plan: - As above. - Continue Protonix BID - Patient had been taking Naproxen 500 mg PO BID for the past 2 years - Will stop nonsteroidal as well as garlic and fish oil for now. (3) GERD Status: Chronic Plan: - As above. Assessment and Plan Patient examined. Assessment and plan formulated with Gely Chauhan PA-C. I agree with the above. duodenal ulcer. acute blood loss anemia. ppi bid and stop nsaids. f/u GI. iron tabs. Problem Qualifiers (1) Gastrointestinal bleed: Qualified Codes: K92.2 - Gastrointestinal hemorrhage, unspecified Gely Chauhan Jan 09, 2018 10:42 Geo Baires MD Jan 09, 2018 12:26
[2018-01-09] MEDS ORDERED: PANT40TA3 PO (10:43)
--- NOTE | 2018-01-09 10:46 | HHI.DCPOC ---
Discharge Care Plan Diagnosis: (1) Anemia due to blood loss (2) Gastrointestinal bleed (3) GERD Goals to Promote Your Health - Pt will need to continue Protonix twice daily - He will need to followup with [facility] in 2 weeks for biopsy results, call for an appt. - Avoid NSAIDs, Naproxen, Ibuprofen, Aleve, Advil, BC powder, etc. Ok to use Tylenol for pain. - Any noted back stools, bloody stools, increased weakness/fatigue or increased shortness of breath, chest pain, palpitations and he is to return to the ED for further evaluation. - Stools will be dark with the oral iron supplements - Pt will need to followup with his PCP, Dr. Ramesh Rodríguez, in 1 week. Call for an appt. Directions to Meet Your Goals Take your medications as prescribed Follow your dietary instruction Follow activity as directed Keep your appointments as scheduled Take your immunizations and boosters as scheduled If your symptoms worsen call your PCP, if no PCP go to Urgent Care Center or Emergency Room Smoking is Dangerous to Your Health. Avoid second hand smoke Call the 24-hour hour crisis hotline for domestic abuse at Gely Chauhan Jan 09, 2018 10:46
[2018-01-09] MEDS ORDERED: FERR325T18 PO (10:57)
[2018-01-09] MEDS: PANTOPRAZOLE SOD 40 MG DELAYED RELEASE TAB PO SCH (11:05)
[2018-01-09] MEDS: ACYCLOVIR 200 MG CAP PO SCH (11:06)
[2018-01-09] MEDS ORDERED: PROPOFOL 200 MG/20 ML AMP IV ONE (12:00)
[2018-01-09] MEDS ORDERED: LIDOCAINE HCL 1% PF 5 ML SYRINGE OTHER ONE (12:00)
--- NOTE | 2018-01-11 08:54 | EKG ---
Date Performed: 01/08/2018 Time Performed: 18:27:54 PTAGE: 67 years EKG: Sinus rhythm NORMAL ECG NO PREVIOUS TRACING DOCTOR: Omero Serna Interpretating Date/Time 01/11/2018 08:52:12
== END 2018-01-09 12:37 | disposition home or self-care (01) | DRG 811 ==
LOC: NEPE 18:35 → NEDA 23:26 → NEDH 01-08 04:17 → OBSVTOIN 01-08 06:10 → NEPHCDU 01-08 15:55
PROVIDERS: ADMIT Hospitalist; ATTEND Hospitalist
PROC: 30233N1 Transfusion of Nonautologous Red Blood Cells into Peripheral Vein, Percutaneous Approach (ICD-10-PCS; principal; 2018-01-07)
PROC: 0DJD8ZZ Inspection of Lower Intestinal Tract, Via Natural or Artificial Opening Endoscopic (ICD-10-PCS; 2018-01-09)
PROC: 0DB68ZX Excision of Stomach, Via Natural or Artificial Opening Endoscopic, Diagnostic (ICD-10-PCS; 2018-01-09 09:12)
DX: D62 Acute posthemorrhagic anemia (principal); K29.51 Unspecified chronic gastritis with bleeding; J44.9 Chronic obstructive pulmonary disease, unspecified; K26.9 Duodenal ulcer, unspecified as acute or chronic, without hemorrhage or perforation; K92.1 Melena; K21.9 Gastro-esophageal reflux disease without esophagitis; E78.5 Hyperlipidemia, unspecified; K64.8 Other hemorrhoids; M19.90 Unspecified osteoarthritis, unspecified site; F12.90 Cannabis use, unspecified, uncomplicated; Z87.891 Personal history of nicotine dependence
CPT/HCPCS: 36430; 71046; 80048; 82728; 83540; 83550; 85025; 86850; 86900; 86901; 86920; 88305; 88312; 93005; 96374; 96375; C9113; G0378; J2060; J7030; J7120; P9016

== ENCOUNTER 2018-09-10 07:46 | Observation (INO) ==
[2018-09-10] MEDS ORDERED: Metoprolol Tartrate 25 MG Tablet PO ONE (08:20)
[2018-09-10] MEDS ORDERED: Chlorhexidine Gluconate 2% 1 Pack (2 Cloths) TOPICAL ONE (08:20)
[2018-09-10] MEDS ORDERED: ceFAZolin 2 GM Premix Inj 2 GM/50 ML PIGGYBACK IV.SIG SCH (08:22)
[2018-09-10] MEDS ORDERED: Sodium Chloride 0.9% 2 ML Flush PRN IV.FLUSH (08:31)
[2018-09-10] MEDS ORDERED: Sodium Chlor 0.9% Inj 500 ML IV.SIG SCH (09:00)
[2018-09-10] MEDS ORDERED: Sodium Chloride 0.9% 2 ML Flush BID IV.FLUSH SCH (09:00)
[2018-09-10] MEDS ORDERED: Bupivacaine/Epinephrine 0.5% Inj 50 ML Vial ONE (11:46)
[2018-09-10] MEDS ORDERED: Labetalol HCl Inj 100 MG/20 ML Vial IV.CONT ONE (11:52)
[2018-09-10] MEDS ORDERED: Neostigmine Inj 5 MG/5 ML Syringe IV.PUSH ONE (11:52)
[2018-09-10] MEDS ORDERED: Lidocaine PF 1% Inj 5 ML Syringe OTHER ONE (11:52)
[2018-09-10] MEDS ORDERED: Normosol-R pH 7.4 Inj 1,000 ML IV.CONT ONE (11:52)
[2018-09-10] MEDS ORDERED: Glycopyrrolate Inj 1 MG/5 ML Syringe IV.PUSH ONE (11:52)
--- NOTE | 2018-09-10 13:58 | P.OP ---
- Preoperative Diagnosis (1) Bilateral inguinal hernia - Postoperative Diagnosis (1) Bilateral inguinal hernia Date of procedure: 09/10/18 Procedure: Robot-assisted bilateral inguinal hernia repair with mesh Anesthesia: ABRAM Surgeon: Miguel Noble MD Estimated blood loss (mL): 5 Operation and Findings: Operative findings: Large pantaloon type hernia bilaterally. Large Bard 3 DMax mesh placed bilaterally. Procedure in detail: The patient was taken to the operating room and placed in the supine position. General endotracheal anesthesia was induced. The abdomen and bilateral inguinal areas were prepped and draped in usual sterile fashion. Surgical timeout was performed to verify correct patient procedure and site. Appropriate preoperative antibiotics were administered. Local anesthetic was injected in the skin and subcutaneous tissue a few centimeters superior to the umbilicus and a 12 mm incision made. A 5 mm Optiview trocar was inserted under direct laparoscopic visualization and the abdomen insufflated to 15 mmHg with CO2 gas which the patient tolerated well. Next an 8 mm robotic trocar was placed in the mid lateral abdomen bilaterally. The upper midline port was changed to 12 mm port. The patient was placed in slight Trendelenburg position. At this point, the da Diane robot was brought parallel to the right side of the patient. The pro-grasper was placed in arm 1 and scissor electrocautery in arm 2. Attention initially was turned to the left inguinal area. Starting at the level of the ASIS, the peritoneum was incised using the scissor electrocautery and the peritoneal flap created nearly to the midline. The flap was brought all the way down to expose Erik's ligament and the entire inguinal floor. Peritoneum was carefully from the spermatic cord structures and reduced superiorly. The patient had a pantaloon type hernia including indirect and direct defects. Fatty tissue was reduced from the direct defect. The Bard 3D max large left mesh was then placed in the left inguinal area with appropriate coverage of the entire inguinal floor and secured with 2-0 Vicryl suture medially at Erik's ligament laterally and far superolaterally. The mesh covered the entire inguinal floor and was deep to the peritoneum. The peritoneal flap was secured back in place with running 3-0 strata fix suture. Attention now turned to the right inguinal area. Again starting at the level of the ASIS, the peritoneum was incised using a scissor electrocautery and the peritoneal flap created. The hernia defects on the side were identical to the left side including an indirect and direct hernia causing a pantaloon type hernia around the epigastric vessels. The Bard 3 DMax large right mesh is placed and secured in the same fashion as on the left side. There is wide coverage of the inguinal floor and the peritoneum was superficial to the mesh. The peritoneal flap was then closed with running 3-0 strata fix suture. At this point trochars were removed and the abdomen was allowed to desufflate. The fascia at the midline incision closed with 0 Vicryl suture. Skin closed with subcuticular 4-0 Monocryl and Dermabond. Athletic supporter was placed on the patient. The patient tolerated procedure well and was extubated and taken to PACU in stable condition.
[2018-09-10] MEDS ORDERED: Sugammadex Inj 200 MG/2 ML Vial IV.PUSH ONE (14:19)
[2018-09-10] MEDS ORDERED: *HYDROmorphone PF Inj 1 MG/ML Ampul PERIprocedural Use ONLY ONE (14:23)
[2018-09-10] MEDS ORDERED: *Meperidine Inj 25 MG/ML Vial PERIprocedural Use ONLY ONE (14:24)
[2018-09-10] MEDS ORDERED: fentaNYL Citrate Inj 100 MCG/2 ML Ampul ONE (14:36)
[2018-09-10] MEDS ORDERED: Morphine Inj 4 MG/ML Vial ONE (14:36)
[2018-09-10] MEDS ORDERED: *morphine SULFATE 10 MG/ML PERIprocedure ONLY ONE (14:40)
[2018-09-10] MEDS ORDERED: Morphine Inj 4 MG/ML Vial IV.PUSH PRN ×2 (14:52)
[2018-09-10] MEDS ORDERED: *morphine SULFATE 4 MG/ML PERIprocedure ONLY ONE ×2 (14:59→15:13)
[2018-09-10] MEDS ORDERED: Ketorolac Inj 30 MG/ML (IVP) Vial ONE (16:20)
[2018-09-10] MEDS ORDERED: Ketorolac Inj 30 MG/ML (IVP) Vial IV.PUSH ONE (16:30)
[2018-09-10] MEDS ORDERED: HYDROmorphone PF Inj 1 MG/ML Ampul IV.PUSH PRN (16:52)
[2018-09-10] MEDS ORDERED: Post-op Orders (for Pharmacy) OTHER ONE (16:52)
[2018-09-10] MEDS ORDERED: Naloxone Inj 0.4 MG/ML Vial IV.PUSH PRN (16:52)
[2018-09-11 08:35] VITALS: BP 113/69; PULSE 71; RESP 18; TEMP 98.1; O2SAT 96
== END 2018-09-11 10:22 | disposition home or self-care (01) ==
LOC: HSDC 07:46 → HSDI 07:46 → N06 18:03
PROVIDERS: ADMIT Surgery; ATTEND Surgery